=== PATIENT | male | born 1945 | race Caucasian/White ===

== ENCOUNTER → 2019-10-06 | Outpatient (CLI) | payer MEDICARE ==
--- NOTE | 2019-10-06 09:35 | RAD ---
EXAM: ULTRASOUND-GUIDED THYROID FINE-NEEDLE ASPIRATION. HISTORY: Thyroid nodule. Ultrasound-guided biopsy is requested. FINDINGS: The procedure along with its risks and benefits were explained to the patient. They agreed to proceed. A timeout procedure was performed. Sonographic images of the thyroid gland were obtained. The solid target nodule in the superior pole right thyroid lobe was adequately visualized for biopsy. The overlying skin was sterilely prepped and infiltrated with 1% lidocaine for local anesthesia. Under ultrasound guidance, 4 aspirates were obtained using 25-gauge needles. These were hand delivered to pathology who determined them adequate for diagnosis. A sterile dressing was placed. There were no immediate complications. IMPRESSION: 1. Successful ultrasound-guided fine-needle aspiration of the superior pole right thyroid nodule. Electronically signed by: Rosangela Fisher MD (10/06/2019 9:33 AM) [id number]
--- NOTE | 2019-10-07 13:07 | PATHOLOGY ---
Note [facility] Accession Number: [id number] TESTS RESULT FLAG UNITS REF RANGE LAB Clinician Provided Cytology Information No. of containers..01 Other (Miscellaneous) Source: RIGHT THYROID NODULE DIAGNOSIS: RIGHT THYROID NODULE NEGATIVE FOR MALIGNANT CELLS. B[place]ESDA CATEGORY II. SPECIMEN CONSISTS OF BENIGN FOLLICULAR CELLS, HEMOSIDERIN-LADEN MACROPHAGES, COLLOID, AND BLOOD. THIS PATTERN IS CONSISTENT WITH A BENIGN FOLLICULAR NODULE. THIS INTERPRETATION INCLUDES EVALUATION OF A CELL BLOCK. Pathologist ICD10: 02 E04.1 Signed out by: 02 Ken Steel MD, Pathologist NPI- [id number] Performed by: Eric Templeton, Measuring Clerk ([facility]) Gross description: 01 30ML, CLEAR RED, 3F 4AD 3HE /LCS 10/06/2019 1658 Local FLAG LEGEND: L-Low Normal,H-High Normal,LL-Alert Low,HH-Alert High <-Panic Low,>-Panic High,A-Abnormal,AA-Critical Abnormal Performed at: [facility] [address] [place] [address] Rob Piña MD, [address] [facility] [address] Ken Steel MD, Specimen Comment: A courtesy copy of this report has been sent to [phone], [phone] Specimen Comment: [id number], Specimen Comment: [id number] Specimen Comment: Report sent to ,DR GUILLEN / DR SANTILLAN Specimen Comment: A duplicate report has been generated due to demographic updates. Performed at: [address], [place] [id number] MD Rob Piña MD Phone: [phone]
== END | disposition home or self-care (01) ==
LOC: US 09:07
PROVIDERS: ATTEND Surgery
DX: E04.1 Nontoxic single thyroid nodule (principal)
CPT/HCPCS: 10005; 60300; 76942; 88173; 88305